=== PATIENT | male | born 1990 | race Caucasian/White ===

== ENCOUNTER 2023-05-25 10:01 | Emergency (ER) | payer BC, SELFPAY ==
[2023-05-25] VITALS (8 sets, daily range): BP systolic 112–145; BP diastolic 68–91; PULSE 79–89; RESP 15–20; TEMP 36.6; O2SAT 98–100
[2023-05-25 10:19] LABS: Basophils Absolute Auto 0.1 K/mm3 (0.0-0.1); Basophils Percent Auto 0.6 % (0.2-1.2); Eosinophils Absolute Auto 0.1 K/mm3 (0-0.3); Hematocrit 45.9 % (42.0-52.0); Hemoglobin 15.2 g/dL (14.0-18.0); Immature Granulocyte Absolute 0.04 K/mm3 (0.00-0.031); Immature Granulocyte Percent A 0.4 % (0-0.5); Lymphocytes Absolute Auto 2.24 K/mm3 (0.9-3.2); Lymphocytes Percent Auto 20.7 % (18.3-44.2); Mean Corpuscular HGB Conc 33.1 g/dl (32-36); Mean Corpuscular Hemoglobin 30.2 pg (26-34); Mean Corpuscular Volume 91.1 fl (80-100); Mean Platelet Volume 9.2 fl (7.4-10.4); Monocytes Absolute Auto 0.5 K/mm3 (0.1-0.6); Monocytes Percent Auto 4.9 % (2.6-8.5); Neutrophils Absolute Auto 7.9 K/mm3 (1.3-6.7); Neutrophils Percent Auto 72.4 % (45.5-73.1); Platelet Count Result 275 k/mm3 (150-375); Red Blood Count 5.04 M/mm3 (4.6-6.20); Red Cell Distribution Width 13.2 % (11.5-14.5); White Blood Count 10.8 K/mm3 (4.5-10.0)
[2023-05-25 10:28] LABS: Alanine Aminotransferase 31 U/L (6-50); Albumin Level 4.8 g/dL (3.5-5.1); Alkaline Phosphatase 67 U/L (38-126); Anion Gap 7 mmol/L (8-16); Aspartate Amino Transferase 34 U/L (17-59); Bilirubin,Total 0.6 mg/dL (0.2-1.3); Blood Urea Nitrogen 12 mg/dL (9-20); Calcium 9.2 mg/dL (8.4-10.2); Carbon Dioxide 30 mmol/L (22-30); Chloride 103 mmol/L (98-107); Estimated CRCL calculation 118 ml/min; Estimated Glomerular Filt Rate > 60; Glucose 107 mg/dL (65-110); Potassium 3.8 mmol/L (3.4-5.0); Sodium 140 mmol/L (137-145)
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
[2023-05-25] MEDS: SODIUM CHLORIDE 0.9% IV 1,000 ML 999 ML IV CONT ×3 (10:33→13:55)
[2023-05-25] MEDS: ONDANSETRON INJ 4 MG/2 ML VIAL IV PUSH (10:37)
[2023-05-25 12:08] LABS: Appearance Urine Clear (Clear); Bilirubin Urine Negative (Negative); Blood Urine Negative (Negative); Color Urine Yellow (Yellow); Glucose Urine UA Negative (Negative); Ketones Urine Negative (Negative); Leukocyte Esterase Ur Negative LEU/UL (Negative); Nitrate Urine Negative (Negative); Protein Urine Negative (Negative); Specific Grav Ur 1.013 (1.001-1.035); pH Urine 7.5 (5.0-9.0)
[2023-05-25 13:05] LABS: Add Urine Microscopic? NO
[2023-05-25] MEDS: MECLIZINE HCL 25 MG TABLET PO (15:14)
== END 2023-05-25 16:08 | disposition home or self-care (01) ==
PROVIDERS: Emergency Provider Physician Assistant; PCP Family Medicine
DX: T67.9XXA Effect of heat and light, unspecified, initial encounter (principal); E86.0 Dehydration; R42 Dizziness and giddiness; X30.XXXA Exposure to excessive natural heat, initial encounter
CPT/HCPCS: 36415; 80053; 81003; 83735; 85025; 96361; 96374; 99284; A9270; J2405; J7030

== ENCOUNTER 2024-02-03 00:24 | Day surgery (SDC) | payer BC, SELFPAY ==
[2024-01-31 09:32] VITALS: BMI 42.0
--- NOTE | 2024-01-31 09:36 | PC.NURSE ---
Report to the Outpatient Waiting Room, entrance under the green pavilion located off [facility], at time 0930 on date 02/03/24. Planned Procedure Time: 1130. Time changes happen often and if your time is changed the preop area will call you the afternoon before. - You and your visitor will be asked to self-screen and do not enter if you have any COVID symptoms. - A mask is optional within the hospital at this time. Patients may have clear liquids (water, carbonated beverages, clear teas, apple juice) until 3 hours prior to surgery with a maximum of 20 ounces. - No food from midnight until time of surgery Take the following medications with a SIP of water the morning of surgery: N/A DO NOT STOP ANY OF YOUR OTHER PRESCRIPTION MEDICATIONS PRIOR TO SURGERY ?EXCEPT THE FOLLOWING Medications to discontinue per physician: N/A Date to take last dose: N/A Please no make-up, nail german, hairspray, perfume, deodorant, or body powder the day of surgery. No jewelry (including any body piercings) or valuables the day of surgery, leave them at home. Please take a shower or bath the night before, or the morning of, surgery with an antibacterial soap. Wear comfortable, loose fitting clothing. - Jewelry must be removed prior to entering the operating room. Rings and piercings that are not removed may be cut off. - The hospital will not accept responsibility for valuables. - Please leave all valuables, including medications, at home the day of surgery. If you are going home after surgery, a licensed food service driver must drive you home. - NO public transportation without another adult if you receive anesthesia. - We recommend that an adult stay with you for 24 hours following discharge. - We also recommend that you do not drive, make important decision, drink alcoholic beverages, or take any drugs that were not prescribed by your health care provider for at least 24 hours after your discharge time. Follow any additional instructions given to you from your surgeon. If you or anyone in your household have experienced Covid symptoms in the past week, please notify your surgeon or the nurse liaison at the phone number below for possible testing. Telephone instructions given to SILVANA ROGER and asked if any additional questions and then verbalized understanding. Patient advised to call surgeon office or pre surgery nurse liaison [phone] if any additional questions.
[2024-02-03] VITALS (11 sets, daily range): BP systolic 100–160; BP diastolic 50–98; PULSE 66–86; RESP 14–20; TEMP 36.2; O2SAT 94–98
--- NOTE | 2024-02-03 07:42 | WPDHPUPDATE1 ---
History and Physical Update Update Date/Time: 02/03/24 07:42 History and Physical has been reviewed, including an updated exam of the patient. There are NO changes in the patient's condition. Risks, benefits, and alternatives have been discussed and questions answered. Patient agrees to proceed with procedure.
[2024-02-03] MEDS: LACTATED RINGERS 1,000 ML 30 ML IV CONT ×2 (10:00→13:54)
[2024-02-03] MEDS: KETOROLAC 15 MG/ML VIAL (*BKC) IV PUSH ×2 (10:13→13:38)
[2024-02-03] MEDS: ACETAMINOPHEN 500 MG TABLET 1000 MG PO (10:13)
[2024-02-03] MEDS: SCOPOLAMINE 1 MG PATCH 1 PATCH TRANSDERM (10:15)
[2024-02-03] MEDS: ceFAZolin 2 GM/D5W 50 ML 2 GM/50 ML BAG IVPB (12:34)
[2024-02-03] MEDS: LIDO 1%/EPINEPHRINE 1:100,000 20 ML VIAL INFILTRATE (12:47)
[2024-02-03] MEDS: BUPivacaine HCL 0.5% 10 ML AMP 20 ML INFILTRATE (12:48)
[2024-02-03] MEDS: ONDANSETRON INJ 4 MG/2 ML VIAL IV PUSH (15:43)
--- NOTE | 2024-02-05 09:11 | P.PNAN_ITS ---
Anes - Initial Pre Proc Eval Procedure: Operation Date: 02/03/24 11:30 Proposed Procedures p Open Umbilical Hernia Repair without Mesh - Randall Swain MD Date/Time: 02/05/24 09:11 Surgeon: Randall Swain MD Pre Op Diagnosis: Reducible Umb Hernia Patient Data Age: 33 Gender: M Height: 1.63 m Weight: 107.5 kg Last Vital Signs Temp 97.1 F L 02/03/24 10:10 Pulse 70 02/03/24 16:08 Resp 16 02/03/24 16:08 BP 132/75 02/03/24 16:08 Pulse Ox 98 02/03/24 14:55 O2 Del Method Room Air 02/03/24 16:08 O2 Flow Rate 8 02/03/24 14:15 Allergies Allergy/AdvReac Type Severity Reaction Status Date / Time No Known Allergies Allergy Mild Verified 02/03/24 10:09 Home Medications Medication Instructions Recorded Confirmed Type hydrocodone 5 mg-acetaminophen 325 1 tablet PO Q4H PRN pain #15 tabs 02/03/24 Rx mg tablet Patient hx anesthesia problems: none Family hx anesthesia problems: none Results Review: All pre-operative results and documents have been reviewed as part of the pre- operative evaluation. [facility] Past Medical History Medical History Adult BMI 38.0-38.9 kg/sq m Chronic otitis media of both ears after insertion of tympanic ventilation tube Migraine Seasonal allergies Skull fracture with concussion Umbilical hernia Surgical History Surgical History History of placement of ear tubes Family History Family History Grandparent Family history of type 2 diabetes mellitus Other Hypertension Social History Social History Smoking status: Never smoker Alcohol intake: current Alcohol use details: VERY RARE Substance use: never Substance use type: does not use Living arrangements: with family Occupation/Education: occupation Additional occupation/education comments: [employer] care concerns: No Anes - Eval Final PreProcedure Day of Procedure 02/05/24 09:11 Patient weight: morbidly obese Heart: regular rate and rhythm Lungs: clear to auscultation Airway: Mallampati scale class II Neurological: alert and oriented Last oral intake: >/= 8 hours ASA classification: III Emergent: no Anesthetic plan: proceed Anesthesia type and monitoring: general GIVS and standard monitoring Results Review: All pre-operative results and documents have been reviewed as part of the pre- operative evaluation. Informed Consent: The patient's anesthetic plan and its attendant risks and benefits were discussed with the patient/family/POA. Questions were solicited and answers provided to the satisfaction of the patient/family/POA.
--- NOTE | 2024-02-07 08:52 | W.PM.PROC2 ---
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 He has pain areas umbilicus when he lifts. On examination has a partially herniated umbilicus with a reducible umbilical hernia. Defect is approximately 2cm in diameter. Presents now for a elective open umbilical hernia repair without mesh. Findings Patient reducible umbilical hernia. Contents of the hernia was small amount omentum and preperitoneal fat. All the tissue was viable. Fascial defect measured 2cm in diameter. No mesh was used for the repair. Description of Procedure After informed consent was obtained patient brought to the operating room was placed supine position and general endotracheal anesthesia was administered. The abdomen was then prepped and draped usual sterile fashion. A time-out was then performed correctly identifying the patient as well as procedure to be performed. He was given perioperative IV antibiotics. I then made a small curved incision around the upper portion of the umbilicus and dissected down through the dermis skin with a scalpel. Then dissected around the hernia sac down to the fascial defect. I then with blunt dissection with a clamp dissected around the umbilical stalk and hernia sac and then utilized electrocautery to disconnect the overlying dermis of the umbilicus off of the hernia sac. I then opened the hernia sac to find a small amount of omentum and preperitoneal fat which was completely viable. This reduced back into the abdomen. I then resected the hernia sac at the level of the fascia and discarded the hernia sac. I placed my finger into the abdomen through the defect and swept underneath the anterior abdominal wall. There were no adhesions in this area. I then proceeded to close the umbilical defect which was 2cm in diameter primarily with the use of multiple interrupted 0 Ethibond sutures. The defect closed very nicely without any tension. I then proceeded to irrigate the incision sterile saline solution hemostasis was excellent. The recreated the inverted umbilicus by tacking down the dermis of the umbilicus the deeper fascial structures utilizing 3-0 Vicryl suture. Subcutaneous tissues were then closed utilizing interrupted 2-0 Vicryl sutures. A layer of interrupted 3-0 Vicryl deep dermal sutures were then placed and then the skin edges were approximated utilizing a running subcuticular 4-0 Monocryl suture. The incision was then cleaned and then skin skin glue was applied. The patient tolerated the procedure well no complications. All sponges, needles, and instrument counts were correct at the end procedure. EBL was _5__cc. The patient was awakened and taken to recovery in stable and satisfactory condition. Implants None Estimated Blood Loss 5 Drains No Packing No Pathology None sent Complications No immediate complications Condition Stable Disposition PACU [facility] Billing Surgery - Charge Forward: Surgery Billing
== END 2024-02-03 16:18 | disposition home or self-care (01) ==
PROVIDERS: PCP Family Medicine; Visit Provider Surgery
PROC: (CPT 49591; principal; 2024-02-03 11:30)
DX: K42.9 Umbilical hernia without obstruction or gangrene (principal); E66.01 Morbid (severe) obesity due to excess calories; Z68.41 Body mass index [BMI] 40.0-44.9, adult
CPT/HCPCS: 49591; A9270; J0690; J1100; J1170; J1885; J2250; J2405; J2704; J3010; J7120